=== PATIENT | female | born 1980 | race Caucasian/White ===

== ENCOUNTER 2017-05-28 19:10 | Inpatient (IN) | payer MEDICAID, OTHER ==
[~2017-05-28] VITALS: Ht 157.5 cm; Wt 70.9 kg
[2017-05-28 19:19] VITALS: BP 139/78; PULSE 65; RESP 20; O2SAT 98
--- NOTE | 2017-05-28 19:38 | ED.REPORT ---
HPI-Psychiatric Illness Date of Service May 28, 2017 ED Provider: Jude Hope MD The pt is a 37 y/o female w/ hx of depression presenting to the ED via EMS due to self harm. The pt was poking herself w/ a knife in an attempt to make hesitation fischer. She also called her brother to describe what she was doing. The knife did not go through the skin. The pt reports only hitting herself in the past but has been wanting to hurt herself and been feeling depressed intermittently for years. The pt was taking antidepressants but stopped in 2014. She is currently seeing a psychologist. The last few days have been especially stressful for her. The pt reports feeling unsure if she truly wants to hurt herself and does report wanting help. Nursing Notes Stated Complaint: VIJAY Chief Complaint: Self harm Nursing Notes Reviewed: Yes ([employer], meds not reconciled) Allergies: Coded Allergies: Penicillins (Verified Allergy, Severe, unknown, 05/28/17) amoxicillin (Verified Allergy, Severe, hives, 05/28/17) caffeine (Verified Allergy, Severe, hypoglycemic, mood changes, syncope, ) egg (Verified Allergy, Severe, joint pain, nausea, 05/28/17) gluten (Verified Allergy, Unknown, 05/28/17) General Time Seen by MD: 19:29 Chief Complaint Other (Self harm ) Hx Obtained From: Patient Arrived By: Ambulance Onset Occurred: Just prior to arrival Symptom Duration: Since onset Caused by: Cut self Recent Healthcare: No recent doctor visit, No recent hospitalization Similar Sx Previous: Yes Risk-Psychiatric Illness Suicide Risk Stratification RF Statements: Risk factors N/A Past Medical History Past Medical History Depression Past Surgical History None reported Smoking History Never Smoker Social History Alcohol Use: Denies alcohol use Drug Use: Denies drug use Other Social History: Lives with parents Ambulatory Status Independent Review of Systems Psychiatric: Reports: Anxiety, Depression, Stress, Denies: Suicidal ideation Complete sys rev & neg: except as marked. Physical Exam Initial Vital Signs Vital Signs (First) Date Time Temp Pulse Resp B/P Pulse Ox O2 Delivery O2 Flow Rate FiO2 05/28/17 19:19 36.7 65 20 139/78 98 Room Air Initial VS: Reviewed, Vital signs normal Head / Eyes: Atraumatic, Normocephalic, PERRL ENT: Mucous membranes moist, Conjunctiva normal, No scleral icterus Neck: Supple, Non-tender, Full range of motion Respiratory: Breath sounds normal, Clear to auscultation, No respiratory distress Cardiovascular: Regular rate & rhythm, Heart sounds normal, Intact distal pulses Extremities: Vascular intact, Neuro intact, No swelling, No tenderness General/Constitutional: Awake, Alert Not intoxicated or experiencing withdrawal Neurologic: Oriented X3, No motor deficits Psychiatric: Not homicidal Abnormal Mood/Affect: Positive: Flat affect Slightly depressed Poor eye contact Answers questions Not engaged Limited insight Suicidal ideation Poor judgement Skin: No rash, Warm, Dry Faint erythmatic costa w/ no trauma to the skin on inside of L elbow Interpretation & Diagnostics Lab Results Interpretation Result Diagram: 05/28/17195305/28/171953 Test 05/28/17 19:54 05/28/17 20:17 White Blood Count 12.0th/mm3 (3.8-10.1) Red Blood Count 4.60mil/mm3 (3.90-5.20) Hemoglobin 13.9g/dL (12.0-15.6) Hematocrit 41.7% (35.0-46.0) Mean Corpuscular Volume 90.7fL (81-100) Mean Corpuscular Hemoglobin 30.2pg (27.0-35.0) Mean Corpuscular Hemoglobin Concent 33.3% (32.0-37.0) Red Cell Distribution Width 14.1% (12.3-15.4) Platelet Count 294bil/L (150-400) Neutrophils (%) (Auto) 80.7% (40-74) Lymphocytes (%) (Auto) 12.9% (14-46) Monocytes (%) (Auto) 5.8% (4-12) Eosinophils (%) (Auto) 0.2% (0-5) Basophils (%) (Auto) 0.2% (0-3) Sodium Level 140mEq/L (134-144) Potassium Level 3.8mEq/L (3.5-5.2) Chloride Level 104mEq/L (97-108) Carbon Dioxide Level 18mmol/L (18-29) Blood Urea Nitrogen 20mg/dL (6-20) Creatinine 0.74mg/dL (0.57-1.00) Estimat Glomerular Filtration Rate 126mL/min (>59) Glucose Level 119mg/dL (60-99) Calcium Level 9.1mg/dL (8.5-10.1) Total Bilirubin 0.2mg/dL (0.0-1.2) Aspartate Amino Transf (AST/SGOT) 17U/L (0-50) Alanine Aminotransferase (ALT/SGPT) 13U/L (0-32) Alkaline Phosphatase 62U/L (25-150) Total Protein 7.1g/dL (6.4-8.4) Albumin 4.1g/dL (3.4-5.0) Thyroid Stimulating Hormone (TSH) 2.270uIU/mL (0.450-4.500) Hold Lester Top Tube Received (Received) Hold Urine Received (Received) Lab Results Interpretation: CBC nonspecific leukocytosis, no findings of infection clinically CMP normal Alcohol negative U tox negative negative Re-Eval/Medical Decision Med Decision/Clinical Course This is a 37-year-old female brought by police for depression and suicidal ideation. Patient reports a history of depression and some ideation, worsening symptoms. There has been some acute stressors, and the patient tested a family member that she was planning to kill herself by cutting her wrists. The family member contacted police who found her with a knife, she is cooperative police and brought here for further evaluation. She made a red costa on her wrists, but did not break the dermis. She denies any alcohol, drugs, or history of abuse. The counselor, but has been off psychiatric medications for depression for some time. On exam she has a flat, depressed affect. She endorses ongoing suicidal ideation. She states she does not feel safe. She demonstrates no clinical signs of intoxication or withdrawal. She has no major medical issues. No acute medical issues have been identified. Screening labs are normal. She seen by the [facility], and she is being admitted on voluntary basis to the [facility] for continued care. Source of Hx: Old records Re-Evaluation/Progress : Time of Eval: 22:22 Re-Evaluation/Progress Note: Pt rechecked. Informed pt of need for admission. Pt understands and agrees with plan for admission. All questions addressed. Differential Diagnosis: Positive: Mood disorder, Suicidal, Negative: Alcohol abuse, Polysubstance abuse, Substance abuse Counseled Regarding: Diagnosis, Lab results, Need for admission Discharge & Departure Impression: Primary Impression: Suicidal ideation Additional Impression: Acute situational disturbance Disposition: ADMITTED TO HOSPITAL Discharge Condition All VS Reviewed: Yes Condition: Stable Referrals: [facility] Scribe Attestation Portions of this note were transcribed by Ash Lerner. I, Dr. Hope personally performed the history, physical exam and medical decision-making; I reviewed and confirmed the accuracy of the information in the transcribed note. copies to: [facility] Jude Hope MD May 28, 2017 19:38 Ash Lerner May 28, 2017 21:38
[2017-05-28 20:02] LABS: BASOPHILS % (AUTO) 0.2 % (0-3); EOSINOPHILS % (AUTO) 0.2 % (0-5); MONOCYTES % (AUTO) 5.8 % (4-12); Mean Corpuscular Hemoglobin 30.2 pg (27.0-35.0); Mean Corpuscular Volume 90.7 fL (81-100); NEUTROPHILS % (AUTO) 80.7 % (40-74); Platelet Count 294 bil/L (150-400)
--- NOTE | 2017-05-29 02:11 | NUR ---
Pt is a 37 y/o voluntary female, arrived on the unit 05/29/17 at 0130, certified through 05/30/17 by SUPRIYA. Pt was brought to the [facility] ED by police for SI after calling brother out of state to say she had cut her wrists. At the ED she reported to staff that she was poking herself with a knife in an attempt to make hesitation fischer. Upon inspection some bruising noted in the area, no wounds present. Pt reports precipitating factors are she lives with her parents, has no friends, has not worked in two years and states she is tired of living alone. Pt reports a suicide attempt February 2017 in which she says she started hitting herself in the head and hoped that she did brain damage so she would not have to exist anymore. Per [facility] ED SW note pt.s thoughts process is disorganized and illogical at times. She is easily distracted and her affect was incongruent to her mood as evidence by her sobbing loudly during the interview with no tears present. Pt has no known medical issues other than self-diagnosed celiac disease, UDS and BAL negative. Pt given Ambien 5mg in the ED, brought to unit changed in to unit attire, completed admission and admission paperwork and went to bed without issues. Thoughts organized, linear and logical, affect and mood depressed, denies A/VH and agrees to contract for safety while in the hospital.
[2017-05-29] MEDS ORDERED: Benzocaine-Menthol Lozenge 2/Pkg PO PRN (02:35)
[2017-05-29] MEDS ORDERED: Alum-Mag Hydrox-Simeth 30 mL Suspension PO PRN (02:35)
[2017-05-29] MEDS ORDERED: hydrOXYzine Pamoate 25 mg Capsule PO PRN (02:35)
[2017-05-29] MEDS ORDERED: Magnesium Hydroxide 10 mL Oral Concentration PO PRN (02:35)
[2017-05-29 09:05] VITALS: BP 112/66; PULSE 67; RESP 16
--- NOTE | 2017-05-29 11:28 | NUR ---
NURSE NOTE Mood: "I'm pretty much always anxious, sometimes I just have flares. Right now feels like a flare but I don't want meds." Endorses anxiety -08/01; depression, 05/01. Affect: Restricted. Thought Process/Content: "I've just been feeling so depressed for so long. No one understands how I feel. No one can help me." Linear, linked, goal-oriented. Denies AH, VH. Denies HI, SI. Behavior: Sitting in common area, coloring and staring into space.
--- NOTE | 2017-05-29 17:04 | HP ---
[address] [address] HISTORY AND PHYSICAL PATIENT: ZAY MOLINA : 1980 MR#: [id number] ADMIT: 05/29/2017 JOB ID: [id number] IDENTIFICATION OF PATIENT: The patient is a 37-year-old female, who is admitted on a voluntary basis through the emergency department due to increasing difficulties with anxiety and depression. The patient reportedly identified that she has had previous treatment for depression, anxiety, and is involved in outpatient counseling but no medication management at this time. CHIEF COMPLAINT: "I just couldn't stop myself." This is per patient report in reference to interactions with friends on Facebook. HISTORY OF PRESENT ILLNESS: As stated above, the patient is a 37-year-old female, who was admitted on a voluntary basis through the emergency department. Per report, the patient identified that she was struggling with difficulties with increasing factors of depression including feelings of worthlessness, helplessness. She reportedly identified with the emergency department staff that she was poking at herself with a knife in an attempt to make hesitation fischer. She reportedly had also called her brother, who recommended that the patient be brought into the emergency department. She reports that she has been seeing a therapist, Cleo, through the [facility] contracted with [facility] over the past month and stated that she was supposed to be undergoing treatment of cognitive behavioral therapy. She reports that she does identify that she believes that she has a diagnosis of Asperger's syndrome and discussed with myself and Fidel Aj, the rehabilitation case coordinator, many symptoms including difficulties with social and emotional reciprocity difficulties. 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 The patient identifies that she often feels somewhat judged and rejected by many individuals in society. She indicates that she has never been able to be in a long-term relationship. She indicates that she most recently had difficulties with a long-term male friend who this past week told her that she needed to stop bothering him and that evidently he blocked her from Facebook. She reports that she became very distraught and struggled with thoughts of hurting herself at that time. She notes that she has received treatment for depression in the past, dating back to college. She reports that she was initiated on medications including Lexapro and Prozac at that time and stated that she essentially saw no benefit. She reports that she was also seen recently by a psychiatrist in [facility], who recommended treatment for obsessive-compulsive features. The patient identifies significant characteristics including checking, counting. She identifies in the past, in order to a deal with her factors of anxiety and stress, she would like to organize things, such as beading. She indicated that she can work on various bead projects up to 6-7 hours at length. In reviewing other features, she identified that she tends to get stuck on various topics and becomes repetitious in her thinking patterns. She identified significant struggles with sleep as a result, identified factors of panic attacks in the past including symptoms of tachycardia, tachypnea and sense of impending doom. PAST MEDICAL HISTORY: Substantial for allergies to: 1. PENICILLIN. 2. AMOXICILLIN. 3. CAFFEINE. 4. EGG. 5. GLUTEN. She identifies that she has tested positive for celiac disease in the past. She indicates that in 2014, she underwent testing and changed her diet and evidently lost greater than 20 pounds within one month. Other medical history is reviewed through the emergency department, I agree with findings. CURRENT MEDICATIONS: Include none. PAST PSYCHIATRIC HISTORY: Substantial for the above information. SOCIAL HISTORY: Currently, the patient lives at home with her parents. She has no long-term relationships. Never been , no children. She is currently unemployed. Previously has a degree in primary education but has not been certified. She denies any drug or alcohol involvement. She denies any history of trauma. FAMILY HISTORY: Positive for history of depression in the biologic mother, who has been treated with antidepressants in the past. DEVELOPMENTAL HISTORY: As noted above, the patient is a high school graduate. She evidently moved to [facility] in 2001 from [place]. She does have a college degree in primary education from [employer] but no certificate for education at this time. MENTAL STATUS EXAM: General appearance: Patient is quite anxious on approach. She makes intermittent eye contact. She is casually dressed. She does become somewhat agitated throughout the course of the conversation, stating that she just does not understand why she has to live this way. Her mood is mildly dysphoric. Her affect is irritable, labile. Her thought process shows no evidence of racing thoughts, flight of ideas, loose or disconnected thinking. Thought content: She admitted to suicidal ideation, as noted above. She denies any specific intent or plan. She evidently did poke at herself with a knife prior to her admission with no evidence of laceration. No evidence of homicidal ideation. No evidence of active hallucinations, delusions. She was alert, oriented to time and place. Her attention and concentration are fleeting. Insight and judgment are poor. IMPRESSIONS: [place] I. 1. Major depressive disorder, recurrent type, nonpsychotic, severe. 2. Generalized anxiety disorder. 3. Social anxiety disorder. 4. Obsessive compulsive disorder with both obsessions and compulsions. [place] II. Rule out obsessive compulsive personality. [place] III. History of celiac disease. [place] IV. Stressors are noted for disturbance in primary support system, limited social network. [place] V. Global Assessment of Functioning current 30. PLAN: 1. Recommendations for discussion of initiation of Prozac was presented to the patient. However, she is reluctant to engage at this time. She indicated that she would like to take some time to think about it. Discussion was held that doses would be much higher than 20. Optimal dosing typically with obsessive compulsive manifestations include 60-80 mg daily. 2. Recommendations for continuation of supportive therapies and further education to follow. 3. Aftercare including return to outpatient individual therapy with cognitive behavioral therapy, and consideration of further referrals, if warranted, for support including group therapy dynamics at [facility]. VAN
--- NOTE | 2017-05-29 22:01 | NUR ---
NOC NOTE Patient presents with neutral affect, pleasant mood. Interacting appropriately with peers on the unit. No complaints. Stayed up to color by herself and went to bed as lights went down. Will continue to monitor for safety.
--- NOTE | 2017-05-30 04:29 | NUR ---
Observations 2300 to 0700 Pt was asleep when my shift started. Pt remained asleep and in bed. Pt first appeared asleep at 2130 and was observed every 15 minutes through the night as ordered. Pt slept well through the night.
--- NOTE | 2017-05-30 12:43 | PROG NOTE ---
[address] [address] PROGRESS NOTE PATIENT: ZAY MOLINA : 1980 MR#: [id number] ADMIT: 05/29/2017 JOB ID: [id number] DATE: 05/30/2017 CHIEF COMPLAINT: "After giving it some thought, I have agreed to initiate the medicine." HISTORY OF PRESENT ILLNESS: As stated above, the patient did identify that she would be willing to initiate doses of Prozac, indicating that she wanted to think about it last evening. She reports that she is aware that the medication may take some time to have a good response but she is aware and willing to follow up with outpatient care providers at [facility]. The patient identified that she does have an appointment tomorrow at 3 p.m. with her outpatient therapist through [facility] and that she would like to make sure that she makes an appointment. OBJECTIVE: On mental status exam, the patient was cooperative, polite. She made good eye contact throughout. She reportedly has been participating in group activities and noted that she feels comfortable on the unit. She reports that she would like to be discharged tomorrow. Her speech is of normal tone, frequency, and volume. Her mood is anxious. Her affect is elevated to some degree. Her thought process shows no evidence of racing thoughts, flight of ideas, loose or disconnected thinking. Thought content, she denied any evidence of current suicidal ideation, intent, or plan. She admitted to significant remorse in reference to the previous incident of taking a knife and poking herself. She identified that she continues to have problems with rigidity of thought, difficulties with checking, counting and is open to initiation of medication. She denies any active hallucinations, delusions. She was alert, oriented to time and place. Her attention and concentration are intact. Insight and judgment are deemed fair to poor. PHYSICAL EXAMINATION: Vital signs are current. Temperature is 35.3 pulse 67, respirations 16, BP 112/66. MEDICATION REVIEW: Includes p.r.n. doses of Vistaril, Ambien which she has not taken it. ASSESSMENT: AXIS I: 1. Major depressive disorder, recurrent type, nonpsychotic. 2. Generalized anxiety disorder. 3. Social anxiety disorder. 4. Obsessive-compulsive disorder with both obsessions and compulsions. AXIS II: Obsessive-compulsive personality. AXIS III: Celiac disease. AXIS IV: Stressors are noted for disturbance of primary support system, limited social network. AXIS V: Global Assessment of Functioning, current 35. PLAN: 1. Recommendations for initiation of Prozac 20 mg q.a.m., with further titration to be deferred to care providers at [facility]. 2. Recommendations for discharge tomorrow with continuation of outpatient access of care including individual therapy through [facility]. 3. Follow up with medication management at [facility], as noted above. MTDD
--- NOTE | 2017-05-30 16:39 | NUR ---
Obs Dayshift Pt spent the shift out in the milieu coloring, listening to music. Pt does engage w/ peers when approached. Polite, quiet, calm, appropriate and reasonable. Pt stated that she is feeling better, and that coming here was a good thing for her to experience, learned a lot about herself, and how her situation could be worse. States that she does have resources outside, and knows now that she does have family support as well. Good ADL's, Good meals
--- NOTE | 2017-05-30 17:58 | NUR ---
NURSE NOTE DAY Mood: "I've been tearful a few times this morning." Denies anxiety, depression. Affect: Somewhat anxious. Thought Process/Content: "I think it might be a good idea to take the medications the doctor recommended; but, I am a little concerned about the dose. It might help with my obsessions and compulsions." Linear, logical, goal-oriented. Behavior: Makes intermittent eye contact. Coloring in dining room much of morning. PRNs/NURS: Spoke with parents and referred their questions related to pt discharge to case management. Plan is for pt to discharge tomorrow.
--- NOTE | 2017-05-31 11:34 | PCM.DIMED ---
Discharge Instructions Date of Service May 31, 2017 Dates of Hospitalization May 29, 2017 at 00:39 Discharge Diagnosis Discharge Diagnosis Major Depression Recurrent OCD with both obsessions and compulsion Generalized Anxiety DO Diet Discharge Diet: No restrictions Activity Discharge Activity: No restrictions Dane Baig DO May 31, 2017 11:34
[2017-05-31] MEDS ORDERED: FLUO20CA25 PO (11:35)
--- NOTE | 2017-05-31 12:46 | NUR ---
Nursing Discharge Note: Patient cooperative with discharge process. Acknowledges understanding of d/c instructions and has a copy with them upon leaving unit at 1245. Belongings accounted for and with patient. Prescriptions faxed to patients home pharmacy. Patient denies harmful thoughts and hallucinations at this time. Encouraged pt to complete goals and seek out staff for assistance if needed.
--- NOTE | 2017-05-31 13:11 | DIS ---
[address] [address] DISCHARGE SUMMARY PATIENT: ZAY MOLINA : 1980 MR#: [id number] ADMIT: 05/29/2017 JOB ID: [id number] DIS: ADMITTING DIAGNOSES: Include: [place] I: 1. Major depressive disorder, recurrent type, nonpsychotic. 2. Generalized anxiety disorder. 3. Social anxiety disorder. 4. Obsessive compulsive disorder with both obsessions and compulsions. [place] II: Rule out obsessive-compulsive personality. [place] III: History of celiac disease. [place] IV: Stressors are noted for disturbance in primary support system, limited social network. [place] V: Global Assessment of Functioning of 30. DISCHARGE DIAGNOSES: [place] I: 1. Major depressive disorder, recurrent type, nonpsychotic. 2. Generalized anxiety disorder. 3. Social anxiety disorder. 4. Obsessive compulsive disorder with both obsessions and compulsions. [place] II: Rule out obsessive-compulsive personality. [place] III: History of celiac disease. [place] IV: Stressors are noted for disturbance in primary support system, limited social network. [place] V: Global Assessment of Functioning of 50. REASON FOR ADMISSION: The patient was a 37-year-old female admitted on a voluntary basis with significant thoughts of suicide including poking herself with a knife. During the course of hospitalization the patient openly identified characteristic features of the above diagnoses and previous trials of medications including Prozac and Lexapro in the past with limited benefit. In further exploration of details, the patient identified that she was maintained on low doses and I had informed her that more than likely she was inappropriately treated and that her requirements of high end doses of Prozac of 60-80 mg daily would be more likely beneficial. She elected to reinitiate medication nonetheless and also agreed to continue with outpatient followup with medication management and continued counseling. CONDITION AT TIME OF DISCHARGE: On the patients mental status exam she was bright, cooperative, interactive. She maintained good eye contact throughout. Her speech was of normal tone, frequency, and volume. Her mood was neutral. Affect was congruent. Her thought process showed no evidence of racing thoughts, flight of ideas, loose or disconnected thinking. Thought content: She denied any evidence of current suicidal, homicidal ideation. No evidence of active hallucinations, delusions. No evidence of paranoia. She was alert, oriented to time and place. Her attention and concentration intact. 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 Insight and judgment were fair. DISCHARGE PLANS: Include: 1. Continuation of Prozac 20 mg daily, one month supply, no refills. Reason for usage: Antidepressant, anxiolytic. 2. Continuation of outpatient followup with [facility]. Appointment scheduled at 3 p.m. today. 3. Recommendations for referrals to [facility] for initiation of medication management as well as continuation of pursuit of cognitive behavioral therapy if the patient is open to such. VAN
--- NOTE | 2017-05-31 17:34 | NUR ---
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 Patient denies S/I and H/I. She also denies auditory and visual hallucinations. Depression is 9 10/24/09 and anxiety is 08/01. Out-patient appointments: Bessy Alonzo [facility], private practice counselor, 05/31/17 at 3:00pm and [facility] at [facility], 06/01/10 at 8:30am. This promotion writer had a family meeting with patient, patient's mother and father. Family meeting went well and patient went home with parents. Parents will be going on a vacation next week and were concerned about patient being home alone without 1:1 care. This promotion writer explained that [facility] has services of Outreach Counseling." However, [facility] will not be able to provide these "outreach" services next week due to completion of "new client" paperwork by next week. A: Patient is cooperative, future oriented, fair insight, fair judgment. P: Follow the care plan, coordinate with out-patient providers.
== END 2017-05-31 12:45 | disposition home or self-care (01) | DRG 885 ==
LOC: SED 19:10 → MHC 05-29 00:39
PROVIDERS: ADMIT Psychiatry & Neurology Psychiatry; ATTEND Psychiatry & Neurology Psychiatry
DX: F33.2 Major depressive disorder, recurrent severe without psychotic features (principal); R45.851 Suicidal ideations; F40.11 Social phobia, generalized; F42.8 Other obsessive-compulsive disorder; F60.5 Obsessive-compulsive personality disorder; F43.0 Acute stress reaction